=== PATIENT | male | born 1975 | race Two or more races ===

== ENCOUNTER 2018-07-02 09:28 | Emergency (ER) | payer OTHER ==
[~2018-07-02] VITALS: Ht 167.6 cm; Wt 85.1 kg
[2018-07-02] MEDS ORDERED: PEN-VEE K,VEET500 MG PO (10:33)
[2018-07-02 11:10] VITALS: BP 123/78
== END 2018-07-02 11:11 | disposition home or self-care (01) ==
LOC: EME 09:28
DX: J02.0 Streptococcal pharyngitis (principal); M54.2 Cervicalgia
CPT/HCPCS: 72040; 87651 90; 99281; 99284